=== PATIENT | female | born 1965 | race Caucasian/White ===

== ENCOUNTER 2024-04-28 08:57 | Outpatient (REF) | payer OTHER, SELFPAY ==
[2024-04-28 13:56] LABS: Influenza A PCR NEGATIVE (Negative); Influenza B PCR NEGATIVE (Negative); Resp Syncy Virus RNA Qual PCR NEGATIVE (Negative); SARS COV2 PCR INHOUSE NEGATIVE (Negative)
[2024-04-28 14:20] LABS: Adenovirus PCR Not Detected (Not Detect.); Bordetella parapertussis PCR Not Detected (Not Detect.); Bordetella pertussis PCR Not Detected (Not Detect.); Chlamydia pneumoniae PCR Not Detected (Not Detect.); Coronavirus 229E PCR Not Detected (Not Detect.); Coronavirus HKU1 PCR Not Detected (Not Detect.); Coronavirus NL63 PCR Not Detected (Not Detect.); Coronavirus OC43 PCR Detected (Not Detect.); Human metapneumovirus PCR Not Detected (Not Detect.); Influenza A PCR Not Detected (Not Detect.); Influenza B PCR Not Detected (Not Detect.); Mycoplasma pneumoniae PCR Not Detected (Not Detect.); Parainfluenza 1 PCR Not Detected (Not Detect.); Parainfluenza 2 PCR Not Detected (Not Detect.); Parainfluenza 3 PCR Not Detected (Not Detect.); Parainfluenza 4 PCR Not Detected (Not Detect.); RSV PCR Not Detected (Not Detect.); Rhino/Enterovirus PCR Not Detected (Not Detect.)
[2024-04-28 14:33] LABS: SARS-CoV-2 PCR Not Detected (Not Detect.)
== END 2024-04-28 08:58 | disposition home or self-care (01) ==
LOC: HO.LNP 08:57
PROVIDERS: PCP Internal Medicine; Visit Provider Physician Assistant
DX: J06.9 Acute upper respiratory infection, unspecified (principal)
CPT/HCPCS: 0241U; 87633

== ENCOUNTER 2024-04-28 08:57 | Outpatient (AMB) | payer OTHER, SELFPAY ==
--- OUTSIDE RECORDS SUMMARY | 2024-04-28 09:11 | XMS_ITS | Data Portability ---
Author Organization [place] - [facility], [address] Address [address] [place] [address] Assessment No assessment recorded. Plan of Treatment Reminders Order Date Submit Date Provider Last Modified By Organization Details Last Modified Time Details Appointments None recorded. Lab None recorded. Referral None recorded. Procedures None recorded. Surgeries None recorded. Imaging None recorded. Medication Orders mupirocin 2 % topical ointment 2022 023 [facility] #[id number], [address], [place], [id number], 3 14:07:47 doxycycline hyclate 100 mg capsule 2022 023 [facility][id number], [address], [place], [phone], 3 15:08:26 Patient TargetsNo targets recorded. Patient InstructionsNo instructions recorded. Reason for Referral None Reported. Problems Name Problem SNOMED Code Status Onset Date Resolution Date Notes Provider Name and Address Organization Details Recorded Time Hyperlipidemia 41255337 Active 2022 IRIS COUVERTIE R null, [place] - [facility] 3 13:27:51 Chronic obstructive pulmonary disease 66993656 Active 2022 IRIS COUVERTIE R null, [place] - [facility] 3 13:28:06 Problem Notes None recorded. Procedures Surgical History Date Name Laterality Status Provider Name and Address Organization Details Recorded Time hysterectomy completed IRIS COUVERTGRACE P A - [facility] 09/16/2022 13:29:31 Imaging Results None recorded. Procedure Notes None recorded. Medical Equipment None Reported. Allergies Allergen ID Allergen Name Allergen Category Reaction Reaction Severity Criticality Documentation Date Start Date Code Code System Note Provider Name and Address Organization Details Recorded Time 751418 Medicinal product containin g penicilli n and acting as antibacte rial agent (product) medicatio n hives Not available Not available 09/16/2022 84751 05 SNOMED BRIANNA Almendarez - [facility] 3 13:27:23 Medications Name Sig Start Date Stop Date Status Note LastModified by Organization Details LastModified Time doxycycline hyclate 100 mg capsule Take 1 capsule twice a day by oral route for 10 days. 2022 active Not Available Not Available Not Avai lable atorvastati n 20 mg tablet TAKE 1 TABLET BY MOUTH DAILY active Not Available Not Available No t Available cetirizine 10 mg tablet TAKE 1 TABLET BY MOUTH DAILY active Not Available Not Available No t Available omeprazole 20 mg capsule,del ayed release TAKE 1 CAPSULE BY MOUTH DAILY active Not Available Not Available No t Available montelukast 10 mg tablet TAKE 1 TABLET BY MOUTH AT BEDTIME active Not Available Not Available No t Available mupirocin 2 % topical ointment APPLY A SMALL AMOUNT TO THE AFFECTED AREA BY TOPICAL ROUTE 3 TIMES PER DAY 2022 active Not Available Not Available Not Avai lable albuterol sulfate HFA 90 mcg/actuati on aerosol inhaler active Not Available Not Available Not Available fluticasone propionate 50 mcg/actuati on nasal spray,suspe nsion SHAKE LIQUID AND USE 2 SPRAYS IN EACH NOSTRIL EVERY DAY active Not Available Not Available No t Available doxycycline hyclate 100 mg tablet TAKE 1 TABLET BY MOUTH TWICE DAILY FOR 7 DAYS 09/16 completed Not Available Not Available Not Available Celso Amador [facility] spacer USE DIRECTED WITH INHALERS active Not Available Not Available No t Available Vitals Date Recorded Body height Body mass index (BMI) Body weight Body temperature Respiratory rate Oxygen saturation Oxygen saturation in Arterial blood by Pulse oximetry Heart rate Systolic blood pressure Diastolic blood pressure Provider Name and Address Organization Details Last Updated DateTime 3 167.64 cm 28.7 kg/m2 34264.4 4 g 98.1 [degF] 18 /min 99 % 99 % 74 /min 149 mm[Hg] 90 mm[Hg] IRIS COUVERTIE R [place] - [facility] 13:31:51 Social History Question Answer Notes LastModified by Organizat ion Details LastModified Time Tobacco Smoking Status Former Smoker ETHEL daileyBRIANNA [facility] 09/16/2022 13:28:58 What Is Your Level Of Alcohol Consumption? Occasional Information not available 09/16/2022 What Is Your Water Source? City Information not available 09/16/2022 What Is Your Heat Source? Other Information not available 09/16/2022 Have You Had Direct Contact, Or Contact During Intimacy, With Monkeypox Rash, Scabs, Or Body Fluids From A Person With Monkeypox? No Information not available 09/16/2022 Do You Use Any Illicit Or Recreational Drugs? No Information not available 09/16/2022 Have You Recently Traveled Abroad? No Information not available 09/16/2022 Do You Or Have You Ever Used Any Other Forms Of Tobacco Or Nicotine? No Information not available 09/16/2022 Sex: Unknown Functional Status None recorded. Mental Status None recorded. Family History Relationship Description Onset Age of this Age Resolved Age Notes LastModified by Organization Details LastModified Time Father No current problems or disability Not available 13:28:46 Mother No current problems or disability Not available 13:28:46 Medical History No medical history recorded. Gynecological HistoryNo gynecological history recorded. Obstetrics History GPAL:G 0 P 0 0 0 0 Past Encounters Encounter ID Performer Location Encounter Start Date Encounter Closed Date Diagnosis/Indication Diagnosis SNOMED-CT Code Diagnosis ICD10 Code [id number] [address] [address] 06/08/2019 10:30:42 06/08/2019 11:37:54 [id number] Jairon Yoon MD [address] [facility] [address] [place] [address] 09/16/2022 13:22:23 09/16/2022 14:13:14 Open wound of lower leg 668926509 S81.802A Health Concerns Section Related Observation LastModified by Organization Detai ls LastModified Time None Recorded Concern Status LastModified by Organization Details LastModified Time None Recorded Advance Directives Directive None Recorded Payers Encounter Date Sequence Insurance Name Policy Number Policy Fountain Covered Member ID Fountain Member ID Guarantor Name 06/08/2019 1 [employer] Yahaira Washburn [id number] Yahaira Washburn 09/16/2022 [employer] [id number] Yahaira Washburn Notes Date Note Type Note Provider Name and Address Organization Details Recorded Time 09/16/2022 text/html Large raised sca b did from over area which she removed about 4 days ago, Underneath is a small Ulcer. More tender than previously Jairon Yoon MD [address] [place], [address], [place] - [facility] 09/16/2022 15:08:36 OBGyn Episode No OBEpisode recorded.
--- NOTE | 2024-04-28 10:02 | MHC.OFFWIV ---
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 Patient Tobacco Use Status: Former Tobacco user Allergies penicillin G Allergy (Unknown, Verified 04/28/24 10:04) unknown seasonal allergies Allergy (Unknown, Uncoded 04/28/24 10:04) unkown Do you need a note to return to daycare/school/sports/work: No HPI HPI Comments History of Present Illness Details [age] yo f presents w/ cough, fatigue, malaise, myalgias X 4 days noot improving. Reports multiple sick contacts at work. Whats bothering her most is cough. Denies CP, fevers, chills, n/v/d, abd pain PE b/l diminished BS and wheezing Hx and pe concerning for flu vs covid vs RSV vs bronchiits. Unlikley PNA, PE, ACS, ARDS Plan- SARS swab. PFSH Social History Patient Tobacco Use Status: Former Tobacco user Review of Systems Const All systems reviewed & are unremarkable except as noted in HPI and below Physical Exam Vital Signs: Last Vital Signs Temp 98.1 F 04/28/24 10:03 Pulse 102 H 04/28/24 10:03 BP 110/76 04/28/24 10:03 Pulse Ox 96 04/28/24 10:03 Oxygen Delivery Method Room Air 04/28/24 10:03 BMI result Body Mass Index 22.4 vss Appearance: Alert.? Oriented X3.? No acute distress.? Head: Normocephalic, atraumatic, no step-offs or deformities Eyes: Pupils equal, round and reactive to light.? Neck: Normal inspection.? Neck supple.? CVS: Normal heart rate and rhythm.? Pulses normal.? Respiratory: No respiratory distress.? Breath sounds diminished b/l and wheezing .? Abdomen: Soft and nontender.? Skin: Skin warm and dry.? Normal skin color.? Normal skin turgor.? Extremities: No lower extremity edema.? No calf ttp. 5/5 strength to bilateral upper and lower extremities Neuro: Oriented X 3.? No motor deficit.? No sensory deficit. CN 2-12 intact Assessment & Plan Assessment & Plan (1) Upper respiratory infection: Code(s): J06.9 - Acute upper respiratory infection, unspecified Plan Take your medications as prescribed. If you were prescribed antibiotics today, it is important that you take your medication to their entirety, do not skip any doses, do not finish them early. Follow-up with your primary care provider this week. Return to the emergency department with new or worsening symptoms. In case of emergency call 911 Orders: Orders SARS-CoV2/FLU/RSV Today J06.9 - Acute upper respiratory infection, unspecified Resp Pathogen Panel - [facility] Today J06.9 - Acute upper respiratory infection, unspecified Medications: New albuterol sulfate 90 mcg/actuation 2 puffs inhalation Q4-6H PRN 6.7 grams 0RF shortness of breath or wheezing benzonatate 100 mg PO BID PRN 14 caps 0RF cough Coding Level of Care Code Est Pt Level 3 (97133) Diagnoses Upper respiratory infection J06.9
[2024-04-28 10:03] VITALS: BP 110/76; PULSE 102; TEMP 36.7; O2SAT 96; BMI 22.4
== END 2024-04-28 11:23 | disposition home or self-care (01) ==
PROVIDERS: PCP Internal Medicine; Visit Provider Physician Assistant
DX: J06.9 Acute upper respiratory infection, unspecified (principal)

== ENCOUNTER 2024-11-27 09:20 | Outpatient (AMB) | payer OTHER, SELFPAY ==
--- OUTSIDE RECORDS SUMMARY | 2024-11-27 10:08 | XMS_ITS | Data Portability ---
Author Organization [facility], [address] Address [address] [place] [address] Assessment No assessment recorded. Plan of Treatment Reminders Order Date Submit Date Provider Last Modified By Organization Details Last Modified Time Details Appointments None recorded. Lab None recorded. Referral None recorded. Procedures None recorded. Surgeries None recorded. Imaging None recorded. Medication Orders mupirocin 2 % topical ointment 2022 023 [facility] #[id number], [address], [place], [id number], 3 14:07:47 doxycycline hyclate 100 mg capsule 2022 023 [id number], [address], [place], [id number], 3 15:08:26 Patient TargetsNo targets recorded. Patient InstructionsNo instructions recorded. Reason for Referral None Reported. Problems Name Problem SNOMED Code Status Onset Date Resolution Date Notes Provider Name and Address Organization Details Recorded Time Hyperlipidemia 72503916 Active 2022 IRIS COUVERTIE R null, [place] - [facility] 3 13:27:51 Chronic obstructive pulmonary disease 40469671 Active 2022 IRIS COUVERTIE R null, PA [...] Name and Address Organization Details Recorded Time 193805 Product containin g penicilli n (product) medicatio n hives Not available Not available 09/16/2022 [id number] SNOMED ETHEL Montaño null, [place] - [facility] 3 13:27:23 Medications Name [...] Available Not Available Not Available Celso Amador [facility] spacer USE DIRECTED WITH INHALERS active Not Available Not Available No t Available Vitals Date Recorded Body height Body mass index (BMI) Body weight Body temperature Respiratory rate Oxygen saturation Oxygen saturation in Arterial blood by Pulse oximetry Heart rate Systolic And Diastolic Provider Name and Address Organization Details Last Updated DateTime 3 167.64 cm 28.7 kg/m2 46509.4 4 g 98.1 [degF] 18 /min 99 % 99 % 74 /min 149/90 mm[Hg] ETHEL Montaño [place] - [facility] 13:31:51 Social History Question Answer Notes LastModified by Organizat ion Details LastModified Time Tobacco Smoking Status Former Smoker ETHEL daileyBRIANNA [facility] 09/16/2022 13:28:58 What Is Your Water Source? City Information not available 09/16/2022 What Is Your Heat Source? Other Information not available 09/16/2022 Have You Had Direct Contact, Or Contact During Intimacy, With Monkeypox Rash, Scabs, Or Body Fluids From A Person With Monkeypox? No Information not available 09/16/2022 Have You Recently Traveled Abroad? No Information not available 09/16/2022 Sex: Unknown Functional Status Question Answer Note LastModified by Organizat ion Details LastModified Time Do you use any illicit or recreational drugs? No Information not available 09/16/2022 Do you or have you ever used any other forms of tobacco or nicotine? No Information not available 09/16/2022 What is your level of alcohol consumption? Occasional Information not available 09/16/2022 Mental Status None recorded. Family History Relationship [...] Diagnosis/Indication Diagnosis SNOMED-CT Code Diagnosis ICD10 Code Diagnosis Note [id number] [facility] [address] [address] 06/08/2019 10:30:42 06/08/2019 11:37:54 [id number] Jairon Yoon MD [facility] [address] [address] 09/16/2022 13:22:23 09/16/2022 14:13:14 Open wound of lower leg 176744865 S81.802A Small Ulcer like wound measuring about half cm in diameter. Probed with forceps and is about 1/2 cm deep. No FB identified on exploratio n.Location of wound makes wound healing more difficult. Watch for any increase in size of te skin opening, discharge or increasing redness. Health Concerns Section Related Observation LastModified by Organization Detai ls LastModified Time None Recorded Concern Status LastModified by Organization Details LastModified Time None Recorded Advance Directives Directive None Recorded Payers Insurance Date Sequence Insurance Name Policy Number Policy Fountain Covered Member ID Fountain Member ID Guarantor Name 01/11/2023 1 [employer] Yahaira Wu [id number] Yahaira Washburn 09/16/2022 [employer] [id number] [employer] Yahaira Washburn OBGyn Episode No OBEpisode recorded.
--- OUTSIDE RECORDS SUMMARY | 2024-11-27 10:08 | XMS_ITS | Clinical Summary ---
Author Organization [facility] [address] [place] [address] [place] [id number] Phone Care Team Providers Care Maintenance Groundskeeper Name Role Phone Laney Martinez MD Primary Care Provider [phone] Allergies Active Allergy Reactions Criticality Noted Date Comments Penicillins 09/11/2013 Medications albuterol HFA (PROAIR HFA ; PROVENTIL HFA ; VENTOLIN HFA) 90 mcg/actuation inhaler Inhale 2 puffs by mouth every 6 (six) hours if needed. 08/18/19 23 Active cetirizine (ZyrTEC) 10 mg tablet Take 1 tablet (10 mg total) by mouth 1 (one) time each day. 06/29/19 23 Active UNABLE TO FIND 1 each by Not Applicable route. 08/18/19 23 Active atorvastatin (LIPITOR) 20 mg tablet Take 1 tablet (20 mg total) by mouth 1 (one) time each day. 90 tablet 1 03/27/20 24 Active montelukast (SINGULAIR) 10 mg tablet Take 1 tablet (10 mg total) by mouth at bedtime. at bedtime. 90 tablet 1 03/27/20 24 Active fluticasone propion-salmet Malik (ADVAIR HFA) 115-21 mcg/actuation inhaler Inhale 2 puffs by mouth 2 (two) times a day. 3 each 1 03/27/20 24 Active omeprazole (PriLOSEC) [address] capsule TAKE 1 CAPSULE(20 MG) BY MOUTH 1 TIME EACH DAY 30 capsule 09/25/19 Active fluticasone propionate (FLONASE) 50 mcg/actuation nasal spray SHAKE LIQUID AND USE 2 SPRAYS IN EACH NOSTRIL DAILY 48 g 3 11/09/19 25 Active fluticasone propionate (FLONASE) 50 mcg/actuation nasal spray Administer 2 sprays into each nostril 1 (one) time each day. Shake liquid 025 Discontinued Active Problems Problem Noted Date Diagnosed Date GERD (gastroesophageal reflux disease) Benign breast cyst in female, left 02/07/2024 Overview (02/14/2024): 08/2023 IMPRESSION Clear cyst was identified at 12:00, 2 cm from the nipple, measuring 0.4 x 0.3 x 0.7 cm. No other cystic or solid masses were identified. COPD (chronic obstructive pu lmonary disease) ([facility] V24, [facility] V28) 03/08/2023 Bunion 03/08/2023 Prediabetes 11/24/2021 Alcohol abuse 11/07/2020 Microscopic hematuria 04/30/2015 Hyperlipidemia 02/20/2015 Seasonal allergic conjunctivitis 01/02/2015 Immunizations Name Administration Dates Next Due Influenza Quadravalent, MDCK , 0.5ml, preservative free (Flucelvax) 6mo and older 05/26/2021 Influenza trivalent, with pr eservative (Fluzone; Afluria) 6mo and older 02/21/2020 [employer] SARS-CoV-2 COVID -19, vector-nr, rS-Ad26, preservative free 08/05/2020 Pneumococcal conjugate 20 va lent (Prevnar 20, PCV 20) 2mo and older 03/27/2024 Tdap Tetanus diptheria acell ular pertussis (Boostrix; Adacel) 7yo and older 03/27/2024,09/11/2013 Surgical History Surgery Date Site/Laterality Comments COLONOSCOPY 05/03/2014 - 05/02/2015 OOPHORECTOMY ovarian teratoma CERVICAL CONIZATION W/ LASER in her 20a COLONOSCOPY 2014 PROCEDURE: HISTORICAL COLONOSCOPY; COMMENT: diverticulosis; no polyps CERVICAL BIOPSY W/ LOOP ELECTRODE EXCISION PROCEDURE: IA CONIZATION CERVIX W/WO D&C RPR ELTRD EXC; COMMENT: in 20s OOPHORECTOMY 2019 PROCEDURE: IA OOPHORECTOMY PARTIAL/TOTAL UNI/BI; COMMENT: ovarian teratoma.@ [facility] Medical History Medical History Date Comments Hyperlipidemia Microscopic hematuria GERD (gastroesophageal reflux disease) Alcohol abuse Prediabetes COPD (chronic obstructive pu lmonary disease) ([facility] V24, [facility] V28) Bunion Tobacco abuse DX:Tobacco abuse Hyperlipemia DX:Hyperlipemia Microscopic hematuria DX:Microsc opic hematuria GERD (gastroesophageal reflux disease) DX:GERD (gastroesophageal reflux disease) Pelvic mass 07/2018 DX:Pelvic mass; COMMENT: [facility] onc. likely teratoma COPD (chronic obstructive pu lmonary disease) ([facility] V24, [facility] V28) DX:COPD (chronic o bstructive pulmonary disease) ([facility]) Hiatal hernia DX:Hiatal hernia COPD (chronic obstructive pu lmonary disease) ([facility] V24, [facility] V28) 03/08/2023 DX:COPD (chronic o bstructive pulmonary disease) ([facility]) Smoking 09/11/2013 DX:Smoking Family History Medical History Relation Name Comments Breast cancer Aunt late 60s maternal Crohn's disease Brother 1 Crohn's disease Brother 2 Other: heart issues Father cardiac issues Father Lung cancer Mother DM Breast cancer Other maternal aunt Crohn's disease Sister 1 with PE /DVT Crohn's disease Sister 2 passed age 5 6 due to DVT/PE Other: Pulmonary disease ( non smoker) Sister 3 Colon cancer Neg Hx Ovarian cancer Neg Hx Uterine cancer Neg Hx Relation Name Status Comments Aunt late 60s Brother 1 Brother 2 Alive Father Mother Other Sister 1 Sister 2 Sister 3 Alive Social History Tobacco Use Types Packs/Day Years Used Date Smoking Tobacco: Former Cigarettes 1 42.2 0 05/03/1979 - 07/01/2021 Smokeless Tobacco: Never Tobacco Cessation:Counseling Given: Not Answered Alcohol Use Standard Drinks/Week Comments Yes 1 (1 standard drink = 0.6 oz pur e alcohol) Comments Unknown Sex and Gender Information Value Date Recorded Sex Assigned at Female 05/12/2024 3:09 PM EST Legal Sex Female 6:52 AM EST Gender Identity Female 05/12/2024 3:09 PM EST Sexual Orientation Straight 05/12/2024 3: 12 PM EST Obstetrics History Para Term AB IAB SAB Ectopic Multiple Livin g Live Births 3 3 3 3 Date Outcome GA Total Labor Labor/2nd/3rd Weight Sex Type Anes PTL Monique A1 A5 Name Clin Term Term Term Last Filed Vital Signs Vital Sign Reading Time Taken Comments Blood Pressure 138/76 03/27/2024 9:40 AM EST Pulse 101 03/27/2024 9:40 AM EST Temperature 36.3 C (97.3 F) 03/27/2024 9:40 AM EST Respiratory Rate 14 03/27/2024 9:40 AM EST Oxygen Saturation 96% 03/27/2024 9:40 AM EST Inhaled Oxygen Concentration - - Weight 62.6 kg (138 lb 1.6 oz) 03/27/2024 9:40 A M EST Height 167.6 cm (5' 6 ) 03/27/2024 9:40 AM EST Body Mass Index 22.29 03/27/2024 9:40 AM EST Plan of Treatment Upcoming Encounters Date Type Department Care Team ([facility] st Contact Info) Description 01/15/2025 9:45 AM EDT Office Visit Pulmonolgy - [place] [address] [facility] [address] [place] [phone] Naheed Eddy, NIKITA [address] [facility] [address] [place] [address] Health Maintenance Due Date Last Done Comments Hepatitis A Vaccines (1 of 2 - Risk 2-dose series) 10/18/1982 Zoster Vaccines (1 of 2) 10/18/1982 HIV Screening 04/11/2022 Social Influencers of Health Screening 04/11/2022 RSV Immunization Adult Patients (1 - Risk 60-74 years 1-dose series) 2023 COVID-19 Vaccine ( season) 2024 05/26/2021, 08/05/2020 Depression Screening 05/03/2024 Influenza Vaccine (#1) 2025 05/26/2021, 2019 Colorectal Cancer Screening: Colonoscopy 02/04/2025 02/04/2015 Lung Cancer Screening (Low Dose CT) 05/13/2025 05/13/2024, 05/13/2023, 05/05/2022, Additional history exists Breast Cancer Screening 07/24/2026 07/25/19 25, 08/09/2023, 07/12/2023, Additional history exists Cholesterol Screening (Lipid Panel) 09/05/2028 09/06/2023, 09/06/2023 Cervical Cancer Screening: HPV 02/06/2029 02/07/2024 DTaP,Tdap,and Td Vaccines (3 - Td or Tdap) 03/27/2034 03/27/2024, 09/11/2013 Hepatitis C Screening Completed 02/20/2015 Pneumococcal Vaccine: 50+ Years Completed 03/27/2024 HIB Vaccines Aged Out No longer eligi ble based on patient's age to complete this topic HPV Vaccines Aged Out No longer eligi ble based on patient's age to complete this topic Hepatitis B Vaccines Aged Out No long er eligible based on patient's age to complete this topic IPV Vaccines Aged Out No longer eligi ble based on patient's age to complete this topic MMR Vaccines Aged Out No longer eligi ble based on patient's age to complete this topic Meningococcal ACWY Vaccine Aged Out N o longer eligible based on patient's age to complete this topic Meningococcal B Vaccine Aged Out No l onger eligible based on patient's age to complete this topic RSV Immunization Patients Under 20 months Aged Out No longer eligible based on patient's age to complete this topic Varicella Vaccines Aged Out No longer eligible based on patient's age to complete this topic Procedures Procedure Name Priority Date/Time Associated Diagnosis Comments MG MAMMO DIGITAL SCREENING W PIERRE BILAT Routine 07/24/2024 10:24 AM EDT Encounter for screening mammogram for breast cancer CT LUNG SCREENING Routine 05/13/2024 9:2 8 AM EST Encounter for screening for malignant neoplasm of respiratory organs Nicotine dependence, cigarettes, uncomplicated HM HPV Routine 02/07/2024 LIPID PANEL Routine 09/06/2023 HM HEPATITIS C SCREENING Routine 02/20/2015 HM COLONOSCOPY Routine 02/04/2015 from Last 3 Months or Most Recently Relevant to Health Maintenance Results * MG Mammo Digital Screening w Pierre bilat (07/24/2024 10:24 AM EDT) Anatomical Region Laterality Modality Breast Bilateral Mammography 07/24/2024 2:36 PM EDT Impressions 07/24/2024 2:48 PM EDT Benign. BI-RADS CATEGORY: 1 - NEGATIVE RECOMMENDATION: Screening bilateral mammogram is recommended in 1 year. Mammo Location: [facility], [address] [place] [address], [id number], . -------- FINAL REPORT -------- Dictated By: Cintia Kennedy Dictated Date: 07/24/2024 14:36 ET Assigned Physician: Cintia Kennedy Reviewed and Electronically Signed By: Cintia Kennedy Signed Date: 07/24/2024 14:48 ET Workstation ID: [id number] Transcribed By: Self Edit Transcribed Date: 07/24/2024 14:37 ET Narrative 07/24/2024 2:48 PM EDT CLINICAL: 58 years old, Female, routine annual exam. COMPARISON: Mammograms dating back to 02/19/2020 most recent of 07/12/2023. TECHNIQUE: Bilateral MLO and CC views were obtained digitally with 3-D mammogram (digital breast tomosynthesis). Computer-aided detection was utilized in evaluation of this exam (CAD). FINDINGS: There is no evidence of suspicious mass or architectural distortion. No worrisome calcifications are evident. There has been no significant change from prior exam(s). BREAST DENSITY: B - There are scattered areas of fibroglandular density. Procedure Note Cintia Kennedy MD - 07/24/2024 CLINICAL: 58 years old, Female, routine annual exam. COMPARISON: Mammograms dating back to 02/19/2020 most recent of07/12/2023. TECHNIQUE: Bilateral MLO and CC views were obtained digitally with 3-Dmammogram (digital breast tomosynthesis). Computer-aided detection wasutilized in evaluation of this exam (CAD). FINDINGS: There is no evidence of suspicious mass or architectural distortion. Noworrisome calcifications are evident. There has been no significantchange from prior exam(s). BREAST DENSITY: B - There are scattered areas of fibroglandular density. IMPRESSION: Benign. BI-RADS CATEGORY: 1 - NEGATIVE RECOMMENDATION: Screening bilateral mammogram is recommended in 1 year. Mammo Location: [facility], [address] [place] [address], [id number], . -------- FINAL REPORT -------- Dictated By: Cintia Kennedy Dictated Date: 07/24/2024 14:36 ET Assigned Physician: Cintia Kennedy Reviewed and Electronically Signed By: Cintia Kennedy Signed Date: 07/24/2024 14:48 ET Workstation ID: [id number] Transcribed By: Self Edit Transcribed Date: 07/24/2024 14:37 ET Laney Martinez MD IMG BI PROCEDURES Final Result * CT Lung Screening (05/13/2024 9:28 AM EST) Anatomical Region Laterality Modality Chest Computed Tomogra phy 05/19/2024 10:5 8 AM EST Impressions 05/19/2024 11:12 AM EST No suspicious mass or nodule. No suspicious interval change. Groundglass opacity in the right middle lobe can be reexamined in the time of screening in one year LUNG RADS: Lung-RADS 2: BENIGN S Modifier (Significant or Potentially Significant Findings): None present No suspicious nonpulmonary findings. RECOMMENDATIONS: 12 month screening low dose CT -------- FINAL REPORT -------- Dictated By: Jamie Iqbal Dictated Date: 05/19/2024 10:58 ET Assigned Physician: Jamie Iqbal Reviewed and Electronically Signed By: Jamie Iqbal Signed Date: 05/19/2024 11:12 ET Workstation ID: [id number] Transcribed By: Self Edit Transcribed Date: 05/19/2024 10:58 ET Narrative 05/19/2024 11:12 AM EST EXAMINATION: CT CHEST WITHOUT CONTRAST LUNG CANCER SCREENING, LOW DOSE CLINICAL INFORMATION: Lung cancer screening. Current smoker COMPARISON: Portions of previous 05/10/2023 TECHNIQUE: Multidetector CT. Examination of the chest. Examination of the chest without IV contrast. Reformatting in the coronal and sagittal planes. Device: Lightspeed VCT DLP: 177 mGy-cm CTDI: 4.83 Dose optimization was performed including the use of low-dose iterative reconstruction technique with automatic exposure control based on patient size. Type of contrast: None Volume of IV contrast: None Volume of contrast discarded: 0 mL FINDINGS: LUNG: No abnormality of the trachea or mainstem bronchi. No focal pneumonia. LUNG NODULES: There are no suspicious nodules or masses. OTHER PULMONARY: There are a few scattered micronodules which appear stable. There is a 1.4 cm groundglass opacity in the middle lobe. Can be reexamined at the time of annual screening. There are some nonspecific dependent lung densities and some peripheral reticular opacities without honeycomb formation. There is some postinflammatory apical scarring. MEDIASTINUM: There are no enlarged mediastinal or hilar lymph nodes. No suspicious abnormalities of the esophagus CARDIAC: The heart is not enlarged. No pericardial fluid or thickening There are moderate coronary calcifications. VASCULAR: There is no thoracic aortic aneurysm. The main pulmonary artery is normal caliber PLEURA: There is no pleural fluid or pneumothorax AXILLA/CHEST WALL: There are no enlarged axillary lymph nodes. No chest wall mass demonstrated VISUALIZED UPPER ABDOMEN: No suspicious abnormality on limited assessment of the visualized upper abdomen MUSCULOSKELETAL: No suspicious focal bony lesion demonstrated. Procedure Note Jamie Iqbal MD - 05/19/2024 EXAMINATION: CT CHEST WITHOUT CONTRAST LUNG CANCER SCREENING, LOW DOSE CLINICAL INFORMATION: Lung cancer screening. Current smoker COMPARISON: Portions of previous 05/10/2023 TECHNIQUE: Multidetector CT. Examination of the chest. Examination of the chest without IV contrast. Reformatting in the coronal and sagittal planes. Device: Lightspeed VCT DLP: 177 mGy-cm CTDI: 4.83 Dose optimization was performed including the use of low-dose iterativereconstruction technique with automatic exposure control based on patientsize. Type of contrast: None Volume of IV contrast: None Volume of contrast discarded: 0 mL FINDINGS: LUNG: No abnormality of the trachea or mainstem bronchi. No focalpneumonia. LUNG NODULES: There are no suspicious nodules or masses. OTHER PULMONARY: There are a few scattered micronodules which appearstable. There is a 1.4 cm groundglass opacity in the middle lobe. Can bereexamined at the time of annual screening. There are some nonspecific dependent lung densities and some peripheralreticular opacities without honeycomb formation. There is somepostinflammatory apical scarring. MEDIASTINUM: There are no enlarged mediastinal or hilar lymph nodes. Nosuspicious abnormalities of the esophagus CARDIAC: The heart is not enlarged. No pericardial fluid or thickening There are moderate coronary calcifications. VASCULAR: There is no thoracic aortic aneurysm. The main pulmonary arteryis normal caliber PLEURA: There is no pleural fluid or pneumothorax AXILLA/CHEST WALL: There are no enlarged axillary lymph nodes. No chestwall mass demonstrated VISUALIZED UPPER ABDOMEN: No suspicious abnormality on limited assessmentof the visualized upper abdomen MUSCULOSKELETAL: No suspicious focal bony lesion demonstrated. IMPRESSION: No suspicious mass or nodule. No suspicious interval change. Groundglass opacity in the right middle lobe can be reexamined in the timeof screening in one year LUNG RADS: Lung-RADS 2: BENIGN S Modifier (Significant or Potentially Significant Findings): Nonepresent No suspicious nonpulmonary findings. RECOMMENDATIONS: [address] low dose [address] -------- FINAL REPORT -------- Dictated By: Jamie Iqbal Dictated Date: 05/19/2024 10:58 ET Assigned Physician: Jamie Iqbal Reviewed and Electronically Signed By: Jamie Iqbal Signed Date: 05/19/2024 11:12 ET Workstation ID: [id number] Transcribed By: Self Edit Transcribed Date: 05/19/2024 10:58 ET Varsha Medina MD [facility] CT PROCEDURES Final Result * Cervical Cancer Screening: HPV (02/07/2024) [facility]ologist [facility] Cervical Cancer Screening: HPV Negative abstracted Historical Provider HEALTH MAINTENANCE Final Result * Lipid panel (09/06/2023) [facility] LDL/HDL Ratio 2 0 - 4 Triglycerides 59 0 - 150 mg/dL Cholesterol 200 0 - 200 mg/dL HDL 114 >=40 mg/dL LDL Cholesterol 75 0 - 100 mg/dL Blood Venous blood specimen / Unknown Historical Provider LAB BLOOD ORDERABLES Kourtney l Result * Hepatitis C Screening (02/20/2015) Hepatitis C Screening abstracted Historical Provider HEALTH MAINTENANCE Final Result * Colonoscopy (02/04/2015) Colonoscopy no interpretation , abstracted Anatomical Region Laterality Modality Other Historical Provider HEALTH MAINTENANCE Final Result from Last 3 Months or Most Recently Relevant to Health Maintenance Insurance [facility] Care Teams Maintenance Groundskeeper Relationship Specialty Start Date End Date Laney Martinez MD [address] [place] [address] PCP - General Internal Medicine 03/03/21
--- OUTSIDE RECORDS SUMMARY | 2024-11-27 10:08 | XMS_ITS ---
Author Name [facility] Organization Unknown Care Team Organization Name Specialty Phone Email Start Date End Da te [facility] Laney Martinez Primary Care 10/09/2022 4
[2024-11-27 10:14] VITALS: BP 126/84; PULSE 72; TEMP 36.9; O2SAT 100; BMI 19.9
--- NOTE | 2024-11-27 10:14 | AM.OFFWIN_ITS ---
Intake Vital Signs 11/27/24 10:14 Height 5 ft 6 in Weight 123 lb BMI 19.9 BP 126/84 Blood Pressure Location Rt brachial Position Sitting Pulse 72 Pulse Source Pulse Oximeter Temp 98.4 F Temp Source Oral Pulse Oximetry (%) 100 Oxygen Delivery Method Room Air Intake Visit Reasons: EP ? Wright eye Intake Note: presents with bilateral eye irritation, gritty feeling;LT>RT. Also c/o chest congestion and mild cough. Patient Tobacco Use Status: Former Tobacco user Allergies penicillin G Allergy (Unknown, Verified 11/27/24 10:18) unknown seasonal allergies Allergy (Unknown, Uncoded 04/28/24 10:04) unkown Do you need a note to return to daycare/school/sports/work: Yes HPI HPI Comments History of Present Illness Details 59 y/o Female patient who presents to [facility] walk in clinic with c/o URI symptoms for 4 days now. Reports Nasal congestion, Dry itchy eyes, mild cough and Poor Appetite. Denies Fevers, chills, Nausea and vomiting. [facility] Medical History (Updated 11/27/24 @ 10:40 by Sailaja Gayle NP) Acute respiratory disease Social History Patient Tobacco Use Status: Former Tobacco user Review of Systems Const All systems reviewed & are unremarkable except as noted in HPI and below Physical Exam Vital Signs: Last Vital Signs Temp 98.4 F 11/27/24 10:14 Pulse 72 11/27/24 10:14 BP 126/84 11/27/24 10:14 Pulse Ox 100 11/27/24 10:14 Oxygen Delivery Method Room Air 11/27/24 10:14 BMI result Body Mass Index 19.9 Const General: no acute distress Nutritional Appearance: well nourished Orientation/consciousness: patient oriented x3 HEENT Head: Yes normocephalic Ears: external ears normal and TM abnormal bulging bilateral and with fluid behind the TM bilateral; not perforated General nose exam: Nasal discharge present Face and sinus: Yes sinuses nontender Mouth: moist mucous membranes Throat: Yes uvula midline Eyes Eyelids: Yes eyelids normal Conjunctivae: conjunctivae normal Pupils: Equal, round and reactive pupils present EOM: EOMs intact bilaterally Resp Effort & Inspection: normal respiratory effort and able to speak in complete sentences Auscultation: clear to auscultation bilaterally, no crackles, no rales, no rhonchi and no wheezes Cardio Heart sounds: S1 normal heart sound present and S2 normal heart sound present Neuro General: patient oriented x3, gait normal and moves all extremities Cranial nerves: Yes Equal, round and reactive pupils present Psych Speech and movement: Normal speech and movement present Assessment & Plan Assessment & Plan (1) Acute respiratory disease: Code(s): J06.9 - Acute upper respiratory infection, unspecified Plan: Ordered Dry Eyes Drops OTC cold remedies Rest and hydrate well with warm fluids. Acetaminophen for pain relief. Medications: New ketotifen fumarate 0.025%(0.035%) (Zaditor) 1 drp ophthalmic (eye) Q8H 10 mL 0RF Dry Eyes J06.9 - Acute upper respiratory infection, unspecified oxymetazoline 0.05% (Afrin (oxymetazoline)) 2 sprays intranasal Q12H PRN 22 mL 0RF nasal congestion 3 days J06.9 - Acute upper respiratory infection, unspecified Coding Level of Care Code Est Pt Level 4 (67210) Diagnoses Acute respiratory disease J06.9 Time Spent (min) 20
== END 2024-11-27 10:43 | disposition home or self-care (01) ==
PROVIDERS: PCP Internal Medicine; Visit Provider Nurse Practitioner Family
DX: J06.9 Acute upper respiratory infection, unspecified (principal)